=== PATIENT | male | born 1990 | race Caucasian/White ===

== ENCOUNTER 2017-12-18 14:29 | Emergency (ER) | payer OTHER ==
[2017-12-18] MEDS ORDERED: AMOXICILLIN TRIHYDRATE 500 MG CAPSULE PO ONE (14:49)
[2017-12-18] MEDS ORDERED: AMOXICILLIN TR/POT CLAVULANATE 500-125 MG TAB PO ONE (14:49)
[2017-12-18] MEDS ORDERED: LIDOCAINE 1% INJ-PF (10 MG/ML) 30 ML SDV INJ ONE (14:50)
--- NOTE | 2017-12-18 14:53 | ER Document Report ---
ED Animal Bite - General Mode of Arrival: Ambulatory Information source: Patient TRAVEL OUTSIDE OF THE [place] IN LAST 30 DAYS: No <BART BAGLEY - Last Filed: 12/18/17 17:16> <DAMIAN COVARRUBIAS - Last Filed: 12/18/17 18:20> - General Chief Complaint: Dog Bite Stated Complaint: DOG BITE/LEFT EAR Time Seen by Provider: 12/18/17 14:43 Notes: Patient is a 27 year old male with no significant medical history presents to the emergency department due to a dog bite to the left ear. Patient states he got to close to one of his friends dogs. Patient is currently taking Lexapro and BuSpar for anxiety. Patient is up to date on his vaccines. (BART BAGLEY) - Related Data Allergies/Adverse Reactions: Sulfa (Sulfonamide Antibiotics) Allergy (Verified 12/18/17 14:30) Past Medical History - General Information source: Patient - Social History Smoking Status: Never Smoker Cigarette use (# per day): No Chew tobacco use (# tins/day): No Smoking Education Provided: No Frequency of alcohol use: None Occupation: Computer Repair Family History: Reviewed & Not Pertinent Psychiatric Medical History: Reports: Hx Anxiety <BART BAGLEY - Last Filed: 12/18/17 17:16> Review of Systems - Review of Systems Constitutional: No symptoms reported EENT: See HPI Cardiovascular: No symptoms reported Respiratory: No symptoms reported Gastrointestinal: No symptoms reported Genitourinary: No symptoms reported Male Genitourinary: No symptoms reported Musculoskeletal: See HPI Skin: No symptoms reported Hematologic/Lymphatic: No symptoms reported Neurological/Psychological: No symptoms reported -: Yes All other systems reviewed and negative <BART BAGLEY - Last Filed: 12/18/17 17:16> Physical Exam - General General appearance: Appears well, Alert In distress: None - Respiratory Respiratory status: No respiratory distress - Back Back: Normal - Extremities General upper extremity: Normal ROM General lower extremity: Normal ROM - Neurological Neuro grossly intact: Yes Cognition: Normal Orientation: AAOx4 Sima Coma Scale Eye Opening: Spontaneous [place] Coma Scale Verbal: Oriented Sima Coma Scale Motor: Obeys Commands Sima Coma Scale Total: 15 Speech: Normal - Psychological Associated symptoms: Normal affect, Normal mood - Skin Skin Temperature: Warm Skin Moisture: Dry <BART BAGLEY - Last Filed: 12/18/17 17:16> - HEENT Ears: Other - The left ear has a soft tissue avulsion on the inferior posterior aspect involving the earlobe. It is 2 cm in length, and 5 mm in width. It is partially attached by some subcutaneous tissue near the inferior aspect of the wound, however the skin laceration is the entire circumference of the avulsed part. The subcutaneous tissue is up to 3 mm in thickness. The most inferior aspect of the wound is almost 1 cm from the most inferior tip of the earlobe. <DAMIAN COVARRUBIAS - Last Filed: 12/18/17 18:20> - Vital signs Vitals: Temp Pulse Resp BP Pulse Ox 97.9 F 59 L 16 138/82 H 100 12/18/17 14:34 12/18/17 14:34 12/18/17 14:34 12/18/17 14:34 12/18/17 14:34 Course <BART BAGLEY - Last Filed: 12/18/17 17:16> <DAMIAN COVARRUBIAS - Last Filed: 12/18/17 18:20> - Re-evaluation Re-evalutation: 12/18/17 17:27 PROCEEDURE: The left ear skin was prepped with Shur-Clens. A posterior auricle block was performed using a total of 7 mL's of 1% lidocaine local. The wound was irrigated with 15 mL's of normal saline via syringe and needle for pressure irrigation. The wound of the ear and the subcutaneous tissue only avulsed portion were both cleaned and gently debrided with saline soaked gauze. The flap was reattached using 14 simple sutures of 5-0 nylon. The avulsed tissue did appeared dusky. Bacitracin ointment was applied to the wound edges. 12/18/17 17:58 Dr. Willett came and saw the patient, I commended I prescribed nitroglycerin ointment to put on the flap and around the flap BID. Also requested I called Dr. Herron to follow-up, as he will be out of town next week. I did talk to Dr. Herron and he states that he would see him tomorrow in the office and to call first thing in the morning for an appointment time. After he spoke with Dr. RosDr. Gavin clinton called back and requested to be applied a bolster type dressing using Xeroform around the external ear, then fluffs anterior and posterior, then Humphrey wrap. (DAMIAN COVARRUBIAS) - Vital Signs Vital signs: Temp Pulse Resp BP Pulse Ox 97.9 F 59 L 16 138/82 H 100 12/18/17 14:34 12/18/17 14:34 12/18/17 14:34 12/18/17 14:34 12/18/17 14:34 Discharge <BART BAGLEY - Last Filed: 12/18/17 17:16> <DAMIAN COVARRUBIAS - Last Filed: 12/18/17 18:20> - Discharge Clinical Impression: Dog bite of left ear Qualifiers: Encounter type: initial encounter Qualified Code(s): S01.352A - Open bite of left ear, initial encounter Avulsion of left ear Qualifiers: Encounter type: initial encounter Qualified Code(s): S01.302A - Unspecified open wound of left ear, initial encounter Condition: Stable Disposition: HOME, SELF-CARE Additional Instructions: Animal Bites Animal bites are often heavily contaminated with bacteria. In spite of thorough cleansing and proper treatment, these wounds frequently become infected. Bite wounds of the hands are especially prone to complications. Bites are dressed, if possible. Large wounds may require suturing after internal cleansing. Because of infection risk, some large wounds must remain unstitched. Your doctor is trained to advise you on the best treatment for your bite. Call the doctor at once if the wound becomes red, swollen, warm, increasingly painful, or if it begins to drain. Danger signs also include red streaks up the involved extremity, swollen glands in the groin or under the arm , or fever and chills. The risk of rabies from domestic animals is very low. Bats, sick animals, and wild animals may expose you to rabies. The physician, or the health department, will inform you if you will need to receive the rabies vaccine. You had an avulsion injury of the earlobe that disrupted the blood supply to all of the tissue. There did appear to be adequate subcutaneous tissue to allow reattachment of the avulsed segment. There is no guarantee that the avulsed segment will survive. Take the antibiotics as prescribed. Apply a small amount of the nitroglycerin ointment onto the laceration flap extending just over the suture line on either side. Prescriptions: Amox Tr/Potassium Clavulanate [Augmentin 875-125 mg Tablet] 1 tab PO BID #20 tablet Nitroglycerin [Nitro-Bid 2% Ointment 30 gm] 1 dose TP ASDIR PRN #30 gm PRN Reason: Oxycodone HCl/Acetaminophen [Percocet 5-325 mg Tablet] 1 tab PO ASDIR PRN #10 tablet PRN Reason: Referrals: NIYA HERRON MD [ACTIVE STAFF] - Follow up tomorrow Scribe Attestation: 12/18/17 15:55 I personally performed the services described in the documentation, reviewed and edited the documentation which was dictated to the scribe in my presence, and it accurately records my words and actions. (DAMIAN COVARRUBIAS) Scribe Documentation - Scribe Written by Amanda:: Amanda Rojo, 12/18/2017 14:52 acting as scribe for :: Kleber <BART BAGLEY - Last Filed: 12/18/17 17:16>
[2017-12-18] MEDS ORDERED: NITROGLYCERIN 2% OINTMENT 1 GM PACKET TP ONE (18:00)
[2017-12-18 19:06] VITALS: BP 128/79
--- NOTE | 2017-12-19 03:25 | CONSULTATION REPORT E ---
Consultation Report NAME: YANIRA BANKS : 1990 AGE: 27Y DATE: 12/18/2017 TO: HARISH ROSALES D.O. FROM: DAMIAN COVARRUBIAS M.D. Requesting Physician ER consult request for ENT. REASON FOR CONSULTATION REQUEST: Acute left ear trauma due to dog bite injury with tissue avulsion. HISTORY OF PRESENT ILLNESS: This is a 27-year-old white male who was seen and evaluated in the [facility] in the afternoon of 12/18/2017. The patient reported suffering a left ear dog bite injury at approximately 1400 hours on 12/18/2017 with tissue avulsion. The Emergency Room physician evaluated and treated this dog bite injury with wound washout followed by reapproximation of tissue margins with nylon suture. There was only a thin, inferiorly-based tissue connection to the flap that had been avulsed. The Emergency Room physician asked for ENT consultation and further management. PAST MEDICAL HISTORY: Reviewed, and the patient is treated for anxiety. ALLERGIES: SULFA. MEDICATIONS: The patient takes: 1. Lexapro. 2. BuSpar. SOCIAL HISTORY: The patient has never been a smoker. Alcohol use is none. Occupation: Computer repair. FAMILY HISTORY: Reviewed and is not relevant. REVIEW OF SYSTEMS: CONSTITUTIONAL: No symptoms reported. EAR, NOSE, AND THROAT/OTOLARYNGOLOGY: See HPI. CARDIOVASCULAR: No symptoms reported. RESPIRATORY: No symptoms reported. GASTROINTESTINAL: No symptoms reported. MALE GENITOURINARY: No symptoms reported. MUSCULOSKELETAL: No symptoms reported. SKIN: See HPI. HEMATOLOGIC/LYMPHATIC: No symptoms reported. NEUROLOGICAL: No symptoms reported. Per ER record, which was reviewed. PAST SURGICAL HISTORY: None reported. PHYSICAL EXAMINATION: VITAL SIGNS: Stable, and they are per ER record, and the patient was afebrile. GENERAL: The patient is alert and oriented and in no apparent distress. HEAD: Normocephalic, atraumatic. EYES: Extraocular muscles are intact and the conjunctivae are unremarkable in appearance EARS: The external auditory canals are with cerumen and the tympanic membranes cannot be clearly visualized. Left ear is with the dog bite soft tissue avulsion with an inferiorly-based flap/tissue bridge extending from the earlobe. The approximately 1 x 2 cm tissue paddle was reapproximated by the ER staff. Black nylon suture is noted at the left ear, with the flap appearing in stable position and dusky/ecchymotic in appearance. There is no drainage or bleeding noted. The tissue paddle/avulsion injury extends from the anterior portion of the lower 1/3 of the helical region of the ear and extends to the posterior aspect. The underlying cartilage was reported to be intact by the ER physician. NOSE: With nasal septal deviation. ORAL CAVITY: Oropharynx is with moist mucous membranes and the soft palate is redundant in nature. NECK: Without lymphadenopathy or thyromegaly and the trachea is midline. NEUROLOGICAL: Cranial nerves 2-12 are grossly intact. ASSESSMENT AND PLAN: Acute left ear dog bite injury with tissue avulsion that was repaired primarily by the ER staff. The case was discussed with the patient as well as with the ER staff, Dr. Louie, and with Dr. Rubi, Plastic Surgery. Dr. Rubi will pick the patient up tomorrow in clinic on 12/19/2017 and definitively manage this patient's injury. CONSULTATION TIME: The total consult time was 20 minutes. DICTATING PHYSICIAN: HARISH ROSALES D.O. [id number] PHY#: [id number] ID: [id number] JOB#: [id number] ACCT: [id number] cc:HARISH ROSALES D.O. >
== END 2017-12-18 18:33 | disposition home or self-care (01) ==
LOC: ER 14:29
PROC: 0HQ3XZZ Repair Left Ear Skin, External Approach (ICD-10-PCS; principal; 2017-12-18)
DX: S01.352A Open bite of left ear, initial encounter (principal); S01.302A Unspecified open wound of left ear, initial encounter; W54.0XXA Bitten by dog, initial encounter; Z88.2 Allergy status to sulfonamides
CPT/HCPCS: 99284; 12011; J3490

== ENCOUNTER → 2018-04-26 | Outpatient (CLI) | payer OTHER ==
--- NOTE | 2018-04-26 17:08 | RADIOLOGY REPORT (SQ) ---
EXAM DESCRIPTION: CHEST PA/LATERAL COMPLETED DATE/TIME: 04/26/2018 5:00 pm REASON FOR STUDY: COUGH COMPARISON: None. EXAM PARAMETERS: NUMBER OF VIEWS: two views TECHNIQUE: Digital Frontal and Lateral radiographic views of the chest acquired. RADIATION DOSE: NA LIMITATIONS: none FINDINGS: LUNGS AND PLEURA: No opacities, masses or pneumothorax. No pleural effusion. MEDIASTINUM AND HILAR STRUCTURES: No masses or contour abnormalities. HEART AND VASCULAR STRUCTURES: Heart normal size. No evidence for failure. BONES: No acute findings. HARDWARE: None in the chest. OTHER: No other significant finding. IMPRESSION: NO SIGNIFICANT RADIOGRAPHIC FINDING IN THE CHEST. TECHNICAL DOCUMENTATION: JOB ID: [id number] [employer]- All Rights Reserved Reading location - IP/workstation name: [email or web address]
== END ==
LOC: OD 16:49
PROVIDERS: ATTEND Family Medicine
DX: R05 Cough (principal)
CPT/HCPCS: 71046